=== PATIENT | male | born 1980 ===

== ENCOUNTER 2017-05-23 17:01 | Emergency (ER) | payer BC ==
[~2017-05-23] VITALS: Ht 177.8 cm; Wt 83.9 kg
[2017-05-23] MEDS ORDERED: IBUP800 PO ×2 (17:21→18:17)
[2017-05-23] MEDS ORDERED: Norco 5-325 Ta1 EACH PO (18:17)
== END 2017-05-23 18:45 | disposition home or self-care (01) ==
LOC: ER 17:01
DX: S82.51XA Displaced fracture of medial malleolus of right tibia, initial encounter for closed fracture (principal); X50.9XXA Other and unspecified overexertion or strenuous movements or postures, initial encounter
CPT/HCPCS: 29515; 73610; 73630; 99283

== ENCOUNTER → 2019-04-04 | Outpatient (CLI) | payer BC ==
[~2019-04-04] MED LIST: IBUP800 PO; Norco 5-325 Ta1 EACH PO
== END | disposition home or self-care (01) ==
LOC: PLD 10:08 → LAB SHORT 10:08
DX: L30.8 Other specified dermatitis (principal)
CPT/HCPCS: 88305; 88312